=== PATIENT | female | born 1945 | race Caucasian/White ===

== ENCOUNTER → 2018-03-27 09:21 | Outpatient (CLI) | payer MEDICARE, SELFPAY ==
[2018-03-27 10:39] LABS: Alanine Aminotransferase 18 U/L (12-78); Albumin Level 3.4 gm/dL (3.4-5.0); Albumin/Globulin Ratio 0.9 (1.1-1.8); Alkaline Phosphatase 105 U/L (46-116); Aspartate Amino Transferase 13 U/L (15-37); Bilirubin,Total 0.3 mg/dL (0.2-1.0); Blood Urea Nitrogen 19 mg/dL (7-18); Calcium 9.4 mg/dL (8.5-10.1); Carbon Dioxide 31 mmol/L (21.0-32.0); Chloride 102 mmol/L (98-107); Chol/HDL Ratio 2.9 (1-3.5); Cholesterol 182 mg/dL (140-200); Creatinine,Serum 1.13 mg/dL (0.55-1.02); Estimated Glomerular Filt Rate 47 ml/min (>60); GFR (African American) 57 ML/MIN (>60); Glucose 94 mg/dL (74-106); HDL Cholesterol 62 mg/dL (29-89); LDL Cholesterol 88 mg/dL (0-130); Sodium 140 mmol/L (136-145); Thyroid Stimulating Hormone 0.99 uIU/ml (0.358-3.740); Total Protein,Serum 7.4 gm/dL (6.4-8.2); Triglycerides 160 mg/dL (30-200); Uric Acid 8.9 mg/dL (2.6-7.2); VLDL Cholesterol 32 mg/dL (0-40)
== END ==
PROVIDERS: Visit Provider Nurse Practitioner Family
DX: Z00.00 Encounter for general adult medical examination without abnormal findings (principal); I10 Essential (primary) hypertension; E78.2 Mixed hyperlipidemia; E03.9 Hypothyroidism, unspecified; M1A.09X0 Idiopathic chronic gout, multiple sites, without tophus (tophi)
CPT/HCPCS: 36415; 80053; 80061; 84443; 84550

== ENCOUNTER → 2018-07-16 09:17 | Outpatient (CLI) | payer MEDICARE, SELFPAY ==
--- NOTE | 2018-07-16 09:23 | MM_ITS ---
MM Dig screening mamm BI w/CAD ORDERING PHYSICIAN : Tamra Wang APRN PATIENT AGE: 72 years GENDER: Female COMPARISON: December INDICATION: Routine screening mammogram no hormones. No new complaints. Previous cyst aspiration right breast Family history. Mother & maternal aunt breast cancer in her 70s. Maternal grandmother breast cancer in her 60s. TECHNIQUE: Standard CC and MLO images were obtained. R2 CAD reviewed. FINDINGS: Mild/moderate residual fibroglandular elements most evident towards anterior breast and retroareolar region. Mild ductal prominence retroareolar region again noted. Prior films are helpful and support stability with no significant new findings. No dominant or suspicious mass. No suspicious calcifications.. Bilateral benign Appearing scattered benign calcifications bilaterally again noted. Bilateral follow-up in one year adequate. . IMPRESSION: ......... Stable bilateral mammogram. No significant new findings. Moderate breast density BI-RADS Category: 2 Benign Finding(s) RECOMMENDED FOLLOW-UP: 1YR 1 YEAR FOLLOW-UP (A letter has been sent to the patient regarding results of the study.)
== END ==
PROVIDERS: PCP Internal Medicine Adolescent Medicine; Visit Provider Nurse Practitioner Family
DX: Z12.31 Encounter for screening mammogram for malignant neoplasm of breast (principal)
CPT/HCPCS: 77067

== ENCOUNTER → 2018-09-26 09:55 | Outpatient (CLI) | payer MEDICARE, SELFPAY ==
[2018-09-26 11:34] LABS: Alanine Aminotransferase 22 U/L (12-78); Albumin Level 3.4 gm/dL (3.4-5.0); Albumin/Globulin Ratio 0.9 (1.1-1.8); Alkaline Phosphatase 97 U/L (46-116); Anion Gap 14.4 mEq/L (5-15); Aspartate Amino Transferase 18 U/L (15-37); Bilirubin,Total 0.4 mg/dL (0.2-1.0); Blood Urea Nitrogen 27 mg/dL (7-18); Calcium 9.9 mg/dL (8.5-10.1); Carbon Dioxide 28 mmol/L (21.0-32.0); Chloride 102 mmol/L (98-107); Chol/HDL Ratio 3.2 (1-3.5); Cholesterol 192 mg/dL (140-200); Creatinine,Serum 1.34 mg/dL (0.55-1.02); Estimated Glomerular Filt Rate 39 ml/min (>60); GFR (African American) 47 ML/MIN (>60); Globulin 3.9 gm/dl (1.3-3.2); Glucose 91 mg/dL (74-106); HDL Cholesterol 60 mg/dL (29-89); LDL Cholesterol 101 mg/dL (0-130); Potassium 4.4 mmoL/L (3.5-5.1); Sodium 140 mmol/L (136-145); Thyroid Stimulating Hormone 0.96 uIU/ml (0.358-3.740); Total Protein,Serum 7.3 gm/dL (6.4-8.2); Triglycerides 157 mg/dL (30-200); Uric Acid 9.5 mg/dL (2.6-7.2); VLDL Cholesterol 31 mg/dL (0-40)
== END ==
PROVIDERS: Visit Provider Nurse Practitioner Family
DX: I10 Essential (primary) hypertension (principal); E03.9 Hypothyroidism, unspecified; E78.2 Mixed hyperlipidemia; Z00.00 Encounter for general adult medical examination without abnormal findings; M1A.09X0 Idiopathic chronic gout, multiple sites, without tophus (tophi)
CPT/HCPCS: 36415; 80053; 80061; 84443; 84550

== ENCOUNTER → 2020-07-22 08:34 | Outpatient (CLI) | payer MEDICARE, SELFPAY ==
--- NOTE | 2020-07-22 08:56 | MM_ITS ---
PROCEDURE INFORMATION: Exam: MG Screening 3D Mammography Exam date and time: 07/22/2020 8:56 AM Age: 74 years old Clinical indication: Encounter for screening mammogram for malignant neoplasm of breast TECHNIQUE: Imaging protocol: Screening tomosynthesis and 2D mammography including computer-aided detection (CAD) when performed. COMPARISON: 1. MG SCBI MM Dig screening mamm BI w/CAD 07/16/2018 9:45 AM 2. MG DMSB DIG MAMM-SCREEN CANDIDO W/CAD 01/04/2017 3:52 PM FINDINGS: MAMMOGRAPHY: Breast composition: The breast tissue is composed of scattered areas of fibroglandular density. Mass: None. Architectural distortion: None. Calcifications: No suspicious calcifications. Asymmetric density: None. Skin thickening: None. Axillary adenopathy: None. IMPRESSION: No mammographic evidence of malignancy. Annual screening is recommended unless otherwise clinically indicated. ASSESSMENT: BI-RADS Category 1: Negative
[2020-07-22 09:49] LABS: Basophils % 0.3 % (0.1-2.0); Eosinophils # 0.6 K/mm3 (0.0-0.4); Eosinophils % 6.4 % (0.1-12.0); Hematocrit 37.2 % (37.0-47.0); Hemoglobin 12.1 g/dL (12.2-16.2); Lymphocytes % 21.2 % (10-50); Mean Corpuscular HGB Conc 32.6 g/dL (31.8-35.4); Mean Corpuscular Hemoglobin 28.7 pg (27.0-31.2); Mean Corpuscular Volume 88.1 fl (81-99); Mean Platelet Volume 7.5 fl (7.4-10.4); Monocytes # 0.5 K/mm3 (0.1-1.0); Monocytes % 4.9 % (1.7-9.3); Neutrophils # 6.4 K/mm3 (1.8-7.8); Neutrophils % 67.3 % (37.0-80.0); Platelet Count 422 K/mm3 (142-424); Red Blood Count 4.22 M/mm3 (4.20-5.40); Red Cell Distribution Width 14.6 % (11.5-17.5); White Blood Count 9.6 K/mm3 (4.8-10.8)
[2020-07-22 10:42] LABS: Alanine Aminotransferase 14 U/L (12-78); Albumin Level 4.4 g/dl (3.5-5.0); Albumin/Globulin Ratio 1.5 (1.1-1.8); Alkaline Phosphatase 150 U/L (38-126); Anion Gap 10.6 mEq/L (5-15); Aspartate Amino Transferase 25 U/L (14-36); Bilirubin,Total 0.4 mg/dl (0.2-1.3); Blood Urea Nitrogen 22 mg/dl (7-17); Carbon Dioxide 31 mmol/L (22.0-30.0); Chloride 100 mmol/L (98-107); Chol/HDL Ratio 2.9 (1-3.5); Cholesterol 191 mg/dl (140-200); Estimated Glomerular Filt Rate 49 ml/min (>60); GFR (African American) 59 ML/MIN (>60); Glucose 101 mg/dl (74-100); HDL Cholesterol 66 mg/dl (40-60); Potassium 4.6 mmoL/L (3.5-5.1); Sodium 137 mmol/L (136-145); Total Protein,Serum 7.4 g/dl (6.3-8.2); Triglycerides 180 mg/dl (30-150); Uric Acid 9.6 mg/dl (2.5-6.2); VLDL Cholesterol 36 mg/dL (0-40)
[2020-07-22 10:54] LABS: Direct LDL Cholesterol 80.03 mg/dL (100-129)
[2020-07-22 11:15] LABS: Thyroid Stimulating Hormone 2.52 uIU/mL (0.465-4.68)
== END ==
PROVIDERS: PCP Internal Medicine Adolescent Medicine; Visit Provider Nurse Practitioner Family
DX: Z12.31 Encounter for screening mammogram for malignant neoplasm of breast (principal); E03.9 Hypothyroidism, unspecified; E78.2 Mixed hyperlipidemia; M1A.09X0 Idiopathic chronic gout, multiple sites, without tophus (tophi)
CPT/HCPCS: 36415; 77063; 77067; 80053; 80061; 84443; 84550; 85025

== ENCOUNTER → 2020-09-26 10:46 | Outpatient (CLI) | payer MEDICARE, SELFPAY | PROVIDERS: Visit Provider Internal Medicine Gastroenterology | DX: Z01.812 Encounter for preprocedural laboratory examination (principal); Z20.822 Contact with and (suspected) exposure to COVID-19; Z12.11 Encounter for screening for malignant neoplasm of colon | CPT/HCPCS: U0003 ==

== ENCOUNTER 2020-09-28 12:35 | Day surgery (SDC) | payer MEDICARE, SELFPAY ==
[2020-09-25 14:36] VITALS: BMI 32.9
[2020-09-28 13:08] VITALS: BP 167/98; PULSE 96; RESP 18; TEMP 36.9; O2SAT 100
--- NOTE | 2020-09-28 14:29 | HMH.PROC ---
[facility] Procedure Note Procedure Note:: Colonoscopy Procedure Report: Colonoscopy with cold snare polypectomy Endoscopist: Bry Kim II, MD Referring physician: FERNANDO Umaña Date of Procedure: September 28, 2020 Equipment: Olympus 190 variable stiffness pediatric colonoscope Sedation: MAC sedation Indication: Mrs. Pinzon is a 74-year-old female who is here for diagnostic colonoscopy secondary to having a positive Cologuard (on September 02, 2020). She reports no abdominal pain, weight loss, change in her bowel habits or rectal bleeding. She reports no family history of colon cancer. This is her first colonoscopy. Her recent labs showed hemoglobin 12.1 and hematocrit 37.2. Her alkaline phosphatase was mildly elevated at 150. Procedure: Prior to the procedure, a history and physical exam was performed, and patient's medications and allergies were reviewed. The risks, benefits and alternatives of the sedation and procedure were discussed with the patient. All questions were answered and informed consent was obtained. The patient was brought to the procedure room. Patient identification and proposed procedure were verified by the physician and the nurse. The patient was placed in a left lateral decubitus position and the scope was passed under direct vision. Throughout the procedure, the patient's blood pressure, pulse, and oxygen saturations were monitored continuously. The colonoscopy was accomplished without difficulty. The patient tolerated the procedure well. Findings: On digital rectal examination there was normal rectal tone. There were no external hemorrhoids. The colonoscope was introduced through the anal canal to the rectum and advanced to the cecum. The ileocecal valve and appendiceal orifice were identified. The scope was advanced a short distance into the ileum which appeared grossly normal. The scope was then withdrawn into the colon. The cecum, ascending and transverse colon were normal. 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 Within the descending colon was a 5 mm polyp removed via cold snare polypectomy. The remainder of the sigmoid and rectum were grossly normal. Upon retroflexion within the rectum there were grade 1 internal hemorrhoids.The preparation was excellent throughout with [place] Preparation Score of 9. The cecal time was 12 minutes. Impression: 1. Diminutive descending colon polyp 2. Inverted appendix 3. Grade 1 internal hemorrhoids Plan: I will follow up the polyp histology and determine whether further prevention/surveillance is warranted. I would encourage bulk fiber supplementation on a maintenance basis.
[2020-09-28 14:30] VITALS: BP 151/68; PULSE 85; RESP 12; TEMP 36.2; O2SAT 98
[2020-09-28 14:37] VITALS: O2SAT 97
[2020-09-28 14:40] VITALS: BP 135/73; PULSE 89; RESP 16; O2SAT 100
[2020-09-28 14:50] VITALS: BP 143/72; PULSE 90; RESP 16; O2SAT 100
[2020-09-28 15:00] VITALS: BP 143/76; PULSE 87; RESP 16; TEMP 36.2; O2SAT 100
== END 2020-09-28 15:03 | disposition home or self-care (01) ==
LOC: OUTP 12:37
PROVIDERS: PCP Internal Medicine Adolescent Medicine; Visit Provider Internal Medicine Gastroenterology
PROC: 0DJD8ZZ Inspection of Lower Intestinal Tract, Via Natural or Artificial Opening Endoscopic (ICD-10-PCS; CPT 45378; principal; 2020-09-28 13:30)
DX: K63.5 Polyp of colon (principal); K64.0 First degree hemorrhoids; K38.8 Other specified diseases of appendix; I10 Essential (primary) hypertension; E78.5 Hyperlipidemia, unspecified; J45.909 Unspecified asthma, uncomplicated; E03.9 Hypothyroidism, unspecified
CPT/HCPCS: 45385; 88305

== ENCOUNTER → 2021-12-03 14:06 | Outpatient (CLI) | payer MEDICARE, SELFPAY ==
--- NOTE | 2021-12-03 14:20 | CA_ITS ---
FINAL REPORT TECHNIQUE: Color Doppler, duplex Doppler and martel scale sonography of the bilateral neck arterial vasculature was performed. Velocities were measured in the carotid arteries. Stenosis evaluation based on the validated velocity criteria. CLINICAL HISTORY: FATIGUE,DIZZINESS FINDINGS: The peak systolic velocity of the right common carotid artery is 106 cm/s. The peak systolic velocity of the right internal carotid artery is 147 cm/s and end diastolic velocity 51 cm/s. The ICA/CCA ratio is 1.4. A moderate amount of plaque is present. The right external carotid artery is patent. The right vertebral artery is patent with antegrade flow. The peak systolic velocity of the left common carotid artery is 118 cm/s. The peak systolic velocity of the left internal carotid artery is 124 cm/s and end diastolic velocity 45 cm/s. The ICA/CCA ratio is 1.1. A moderate amount of plaque is present. The left external carotid artery is patent.The left vertebral artery is patent with antegrade flow. IMPRESSION: Less than 50% bilateral carotid stenosis. Bilateral patent vertebral arteries with antegrade flow. If indicated, CTA or MRA could further evaluate. Reviewed, Interpreted and Dictated by Jose Alberto Barcenas III, MD Transcribed by Johanna Smith Authenticated and [facility]
--- NOTE | 2021-12-03 14:20 | CA_ITS ---
APPROVED REPORT EXAM: Comprehensive 2D, Doppler, and color-flow Echocardiogram Document Imaging Specialist: Leticia Brown RVT Ht: 5 ft 4 in Wt: 198lbs BSA: 1.95 BP: 123/65 mmHg Indications: FATIGUE,CHEST PRESSURE,SOA 2D Dimensions LVOT 1.92 cm (M/F) 1.5-2.5 LA Volume 24.90 mL LA Volume Index 12.83 mL/m2 (M/F) 16-34 M-Mode Dimensions RVDd 2.49 cm (0.9-2.6) LA Diam 4.12 cm (1.9-4.0) LVDd 4.35 cm (3.5-5.7) Ao Diam 3.24 cm (2.0-3.7) LVDs 3.25 cm (3.5-5.7) IVSd 1.01 cm (0.6-1.1) PWd 0.80 cm (0.6-1.1) EF (Teich) 50.20% FS 25.30% EDV (Teich) 85.40 mL TAPSE 1.96 (<1.7) ESV (Teich) 42.50 mL LV Diastology E Decel Time 203.00 (160-240 msec) E/A Ratio 0.8 MED E' 10.40 (< 7 cm/sec) E'/MED E' Ratio 7.06 (>14) LAT E' 9.80 (<10 cm/sec) E/LAT E' Ratio 7.49 (>14) Aortic Valve LVOT Max 101.00 (70-110 cm/s) LVOT VTI 21.55 cm AoV Peak Mauro. 229.00 (50-130 cm/s) AO Peak GR. 21.00 mmHg AO Mean GR. 11.10 (<5 mmHg) AO VTI 42.05 (18-25 cm) SHIRA (VTI) 1.48 (2.5-4.5 cm2) Mitral Valve MV E Max Mauro. 73.00 (40-130 cm/s) MV A Velocity 89.00 (40-130 cm/s) E/A Ratio 0.82 MV Decel. Time 203.00 (160-240 ms) MV PHT 60.00 ms Pulmonary Valve PV Peak Velocity 79.00 (50-150 cm/s) Tricuspid Valve TR P. Velocity 245.00 cm/s RAP Estimate 10.00 mmHg RVSP 33.90 mmHg Left Ventricle Left atrium is mildly enlarged, left ventricle is normal size, mild concentric left ventricular hypertrophy, estimated ejection fraction 55% with no regional wall motion abnormality, grade 1 diastolic dysfunction seen without tissue Doppler evidence of raise left atrial pressure. Right Ventricle Right atrium and right ventricle are normal size and contractility. Aortic Valve Aortic valve is thickened and calcified leaflets continue to display mobility, the mean gradient across aortic valve is 11 mmHg, valve area is 1.6 cm??? represents mild aortic stenosis, there is no aortic insufficiency. Mitral Valve Mitral valve is minimally thickened, there is mild mitral regurgitation. Tricuspid Valve Tricuspid valve grossly normal, there is mild tricuspid regurgitation, tricuspid regurgitation jet velocity is inadequate for calculation of the right ventricular systolic pressure. Pulmonic Valve Pulmonic valve is poorly visualized. Great Vessels Aortic root is normal size. Inferior vena cava is poorly visualized. Pericardium No significant pericardial effusion noted. Conclusion 1. Mildly enlarged left atrium, normal left ventricular size, mild concentric left ventricular hypertrophy, estimated ejection fraction 55% with no regional wall motion abnormality, grade 1 diastolic dysfunction seen without tissue Doppler evidence of raise left atrial pressure. 2. Thickened and calcified aortic valve with mild aortic stenosis, valve area is 1.6 cm???, there is no aortic insufficiency. 3. Mild mitral and tricuspid regurgitation. 4. No significant pericardial effusion. 5. Inferior vena cava is poorly visualized. Electronically signed by : Martínez Lang MD 12/05/2021 08:49:58
== END ==
PROVIDERS: PCP Internal Medicine Adolescent Medicine; Visit Provider Nurse Practitioner Family
DX: R53.81 Other malaise (principal); R06.02 Shortness of breath; R07.89 Other chest pain; R42 Dizziness and giddiness
CPT/HCPCS: 93306; 93880

== ENCOUNTER 2024-03-12 11:23 | Outpatient (CLI) | payer MEDICARE, SELFPAY ==
[2024-03-12 12:00] LABS: Basophils % 0.5 % (0.1-2.0); Hematocrit 39.2 % (37.0-47.0); Lymphocytes % 26.9 % (10-50); Mean Corpuscular HGB Conc 33.2 g/dL (31.8-35.4); Mean Corpuscular Hemoglobin 29.5 pg (27.0-31.2); Mean Corpuscular Volume 89.1 fl (81-99); Mean Platelet Volume 9.1 fl (7.4-10.4); Monocytes % 6.9 % (1.7-9.3); Neutrophils % 60.3 % (37.0-80.0); Platelet Count 343 K/mm3 (142-424); Red Cell Distribution Width 13.6 % (11.5-17.5); White Blood Count 8.4 K/mm3 (4.8-10.8)
[2024-03-12 12:01] LABS: Eosinophils # 0.4 K/mm3 (0.0-0.4); Lymphocytes # 2.3 K/mm3 (0.7-4.5); Monocytes # 0.6 K/mm3 (0.1-1.0)
[2024-03-12 12:34] LABS: Albumin Level 4.2 g/dl (3.5-5.0); Chloride 99 mmol/L (98-107); Potassium 4.3 mmoL/L (3.5-5.1); Sodium 136 mmol/L (136-145)
[2024-03-12 12:36] LABS: Alanine Aminotransferase 17 U/L (12-78); Anion Gap 11.3 mEq/L (5-15); Aspartate Amino Transferase 30 U/L (14-36); Blood Urea Nitrogen 29 mg/dl (7-17); Carbon Dioxide 30 mmol/L (22.0-30.0); Estimated Glomerular Filt Rate 44 ml/min (>60); GFR (African American) 53 ML/MIN (>60)
[2024-03-12 12:37] LABS: Albumin/Globulin Ratio 1.4 (1.1-1.8); Alkaline Phosphatase 109 U/L (38-126); Bilirubin,Total 0.6 mg/dl (0.2-1.3); Calcium 10.3 mg/dl (8.4-10.2); Chol/HDL Ratio 2.9 (1-3.5); Cholesterol 205 mg/dl (140-200); Glucose 96 mg/dl (74-100); HDL Cholesterol 71 mg/dl (40-60); Total Protein,Serum 7.2 g/dl (6.3-8.2); Triglycerides 144 mg/dl (30-150); VLDL Cholesterol 29 mg/dL (0-40)
[2024-03-12 12:48] LABS: Direct LDL Cholesterol 93.67 mg/dL (100-129)
[2024-03-12 13:00] LABS: Uric Acid 8.1 mg/dl (2.5-6.2)
[2024-03-18 10:10] LABS: Intact Parathyroid Hormone 42.3 pg/mL (7.5-53.5)
== END 2024-03-12 23:59 | disposition home or self-care (01) ==
LOC: LAB 11:25
PROVIDERS: PCP Internal Medicine Adolescent Medicine; Visit Provider Nurse Practitioner Family
DX: E03.9 Hypothyroidism, unspecified (principal); E78.5 Hyperlipidemia, unspecified; M1A.09X0 Idiopathic chronic gout, multiple sites, without tophus (tophi); I10 Essential (primary) hypertension
CPT/HCPCS: 36415; 80053; 80061; 83970; 84443; 84550; 85025

== ENCOUNTER 2024-07-09 14:32 | Outpatient (CLI) | payer MEDICARE, SELFPAY ==
--- NOTE | 2024-07-09 14:36 | US_ITS ---
PROCEDURE INFORMATION: Exam: US Left Breast, Complete MG Left Diagnostic Breast Tomosynthesis Exam date and time: 07/09/2024 2:40 PM Age: 78 years old Clinical indication: Left breast pain; Left breast palpable lump; Mass, lump, or swelling; Additional info: Lump in breast TECHNIQUE: Imaging protocol: Complete ultrasound of all four quadrants of the left breast and the retroareolar regions, including ultrasound of the axilla when performed. Left Diagnostic tomosynthesis and 2D mammography including computer-aided detection (CAD) when performed. Unilateral or bilateral exam. COMPARISON: MG MM DIG SCREENING MAMM BI W/CAD 07/22/2020 9:03 AM FINDINGS: MAMMOGRAPHY: Breast composition: There are scattered areas of fibroglandular density. Breast mammogram findings: There is no stellate mass, architectural distortion or suspicious microcalcifications in either breast to suggest malignancy. No skin thickening or axillary adenopathy. A skin marker was placed over the area of palpable concern in the middle third of the left approximate 3 o'clock axis. 0.7 cm partially circumscribed mass is noted ULTRASOUND: Breast ultrasound findings: Sonographic images of the left breast including the retroareolar region, all 4 quadrants and the axilla demonstrates heterogeneous somewhat border forming ovoid solid-appearing mass in the 1 o'clock axis 8 cm from the nipple corresponding to the area of palpable concern. This most closely corresponds to mass on mammography and measures 0.8 x 0.3 x 0.5 cm in dimensions. The finding is radiographically indeterminate. 2.1 cm cyst versus focal duct ectasia in the left 5 o'clock axis 5 cm from the nipple. No architectural distortion or acoustical shadowing. No skin thickening or axillary adenopathy. IMPRESSION: Indeterminate solid mass in left lateral breast corresponding to the patient's complaint of a palpable abnormality. Ultrasound-guided core biopsy with clip placement and post biopsy left mammogram are recommended for further evaluation. ASSESSMENT: BI-RADS Category 4: Suspicious.
== END 2024-07-09 23:59 | disposition home or self-care (01) ==
LOC: RAD 14:33
PROVIDERS: PCP Internal Medicine Adolescent Medicine; Visit Provider Nurse Practitioner Family
DX: N64.4 Mastodynia (principal); N63.25 Unspecified lump in the left breast, overlapping quadrants
CPT/HCPCS: 76641; 77062; 77066; G0279

== ENCOUNTER 2024-07-19 09:20 | Outpatient (CLI) | payer MEDICARE, SELFPAY ==
--- NOTE | 2024-07-19 09:26 | MM_ITS ---
FINAL REPORT CLINICAL HISTORY: clip placement s/p biopsy FINDINGS: MAMMOGRAM LEFT TECHNIQUE: Standard digital 2-D views COMPARISON: 07/09/2024 DENSITY: There are scattered areas of fibroglandular density FINDINGS: Post biopsy marker clip is noted to be in satisfactory position. Postbiopsy changes are noted. It should be noted that the biopsy marker clip is separate from a focal asymmetry identified within the left lower outer quadrant. IMPRESSION: Biopsy marker clip in good position ASSESSMENT: A post-procedure mammogram is used to confirm the position and deployment of a breast tissue marker after a biopsy RECOMMENDATION: Recommend 6 month sonographic and mammographic follow-up given benign findings Authenticated and ERN
--- NOTE | 2024-07-19 09:26 | US_ITS ---
FINAL REPORT CLINICAL HISTORY: LEFT BREAST MASS -- DR. OLGA HERNÁNDEZ - MAMMOTOME USED FINDINGS: ULTRASOUND-GUIDED LEFT BREAST CORE BIOPSY TECHNIQUE: Limited images were obtained to localize region of interest. The left was prepped in a routine sterile fashion and locally anesthetized with 1% lidocaine. Standard written informed consent was obtained. Lesion was identified at 1:00 measuring 8 x 5 x 3 mm. An 11-gauge vacuum assisted hand-held device was utilized. The needle was positioned posterior to the lesion. Multiple vacuum assisted core samples were obtained. The lesion was noted to be significantly smaller following biopsy. A biopsy marker clip was deployed in satisfactory position. Postbiopsy mammogram showed postbiopsy changes with clip in satisfactory position. Procedure was well tolerated . CONCLUSION: 1. Technically successful ultrasound guided core vacuum assisted biopsy of left breast lesion as above. 2. Biopsy marker clip deployed Histopathology results reveal dense fibrosis without atypical hyperplasia or carcinoma. Pathology is concordant with mammographic findings. Recommend 6 month sonographic and mammographic follow-up as routine benign postbiopsy surveillance. Authenticated and ERN
== END 2024-07-19 23:59 | disposition home or self-care (01) ==
LOC: RAD 09:21
PROVIDERS: PCP Nurse Practitioner Family; Visit Provider Nurse Practitioner Family
DX: R92.8 Other abnormal and inconclusive findings on diagnostic imaging of breast (principal); N63.21 Unspecified lump in the left breast, upper outer quadrant
CPT/HCPCS: 19083; 77065; 88305; C2618

== ENCOUNTER 2025-01-30 14:04 | Outpatient (CLI) | payer MEDICARE, SELFPAY ==
--- NOTE | 2025-01-30 14:08 | MM_ITS ---
PROCEDURE INFORMATION: Exam: US Left Breast, Complete MG Left Diagnostic Breast Tomosynthesis Exam date and time: 01/30/2025 2:13 PM Age: 79 years old Clinical indication: Follow-up from prior for probably benign left breast asymmetry and benign left biopsy results. TECHNIQUE: Imaging protocol: Complete ultrasound of all four quadrants of the left breast and the retroareolar regions, including ultrasound of the axilla when performed. Left Diagnostic tomosynthesis and 2D mammography including computer-aided detection (CAD) when performed. Unilateral or bilateral exam. COMPARISON: 1. MG MM CLIP PLACEMENT LT 07/19/2024 11:08 AM 2. US BIOPSY BREAST LT 07/19/2024 10:20 AM 3. US BREAST LT COMPLETE 07/09/2024 2:40 PM 4. MG MM CLIP PLACEMENT LT 07/19/2024 11:08 AM 5. MG MM DIG MAMM BI DX W/CAD 07/09/2024 2:40 PM FINDINGS: MAMMOGRAPHY: Breast composition: There are scattered areas of fibroglandular density. Breast mammogram findings: Left breast CC and MLO tomosynthesis views were obtained. A biopsy marker is noted in the central left breast. This biopsy marker is not at the site of the originally described left breast mass. The left breast mass in question at roughly 3 o'clock measuring 0.7 cm is unchanged since 07/09/2024. ULTRASOUND: Breast ultrasound findings: The left breast was evaluated with ultrasound. There is a benign simple cysts at 4 o'clock 4 cm from the nipple measuring 2.6 cm. No solid or suspicious masses. No abnormal lymph nodes in the axilla. IMPRESSION: Left breast mass originally described on 07/09/2024 exam does not correlate with the site of biopsy but is unchanged and probably benign. Recommend six-month follow-up bilateral diagnostic mammogram to ensure stability. ASSESSMENT: BI-RADS Category 3: Probably benign.
== END 2025-01-30 23:59 | disposition home or self-care (01) ==
LOC: RAD 14:05
PROVIDERS: PCP Nurse Practitioner Family; Visit Provider Nurse Practitioner Family
DX: N63.25 Unspecified lump in the left breast, overlapping quadrants (principal); R92.322 Mammographic fibroglandular density, left breast; R92.8 Other abnormal and inconclusive findings on diagnostic imaging of breast
CPT/HCPCS: 76641; 77061; 77065; G0279